=== PATIENT | female | born 1955 | race Caucasian/White ===

== ENCOUNTER 2023-06-24 09:49 | Outpatient (CLI) | payer OTHER, SELFPAY ==
--- NOTE | 2023-06-24 10:03 | ECG_ITS ---
Measurements Intervals [place] Rate: 64 P: 22 AK: 162 QRS: -47 QRSD: 93 T: 25 QT: 392 QTc: 405 Interpretive Statements SINUS RHYTHM LOW QRS VOLTAGE IN PRECORDIAL LEADS INCOMPLETE RIGHT BUNDLE BRANCH LEFT ANTERIOR FASCICULAR BLOCK POOR R WAVE PROGRESSION, ANTERIOR LEADS BASELINE ARTIFACT- I, II, III, AVR, AVL, AVF, V3 ABNORMAL ECG NO PREVIOUS ECG AVAILABLE FOR COMPARISON Electronically Signed On 06-24-2023 10:26:09 CDT by Colin Darnell D.O.
== END 2023-06-24 09:50 | disposition home or self-care (01) ==
LOC: ANHSURGERY 09:54
PROVIDERS: PCP Family Medicine; Visit Provider Surgery Plastic and Reconstructive Surgery
DX: I10 Essential (primary) hypertension (principal); Z01.818 Encounter for other preprocedural examination; I45.10 Unspecified right bundle-branch block
CPT/HCPCS: 93005

== ENCOUNTER 2023-06-26 00:22 | Day surgery (SDC) | payer OTHER, SELFPAY ==
[2023-06-23 09:40] VITALS: BMI 28.8
--- NOTE | 2023-06-23 10:05 | PC.NURSE ---
Report to the Outpatient Waiting Room, entrance under the green pavilion located off [facility], at time __7:00AM on date __06/26/23 . Planned Procedure Time: __9:00AM . Time changes happen often and if your time is changed the preop area will call you the afternoon before. - You and your visitor will be asked to self-screen and do not enter if you have any COVID symptoms. - A mask is optional within the hospital at this time. Patients may have clear liquids (water, carbonated beverages, clear teas, apple juice) until 3 hours prior to surgery with a maximum of 20 ounces. - No food from midnight until time of surgery Take the following medications with a SIP of water the morning of surgery: ___AMLODIPINE, GABAPENTIN NEEDED DO NOT STOP ANY OF YOUR OTHER PRESCRIPTION MEDICATIONS PRIOR TO SURGERY ?EXCEPT THE FOLLOWING Medications to discontinue per physician NONE Date to take last dose Please no make-up, nail tamazight, hairspray, perfume, deodorant, or body powder the day of surgery. No jewelry (including any body piercings) or valuables the day of surgery, leave them at home. Please take a shower or bath the night before, or the morning of, surgery with an antibacterial soap. Wear comfortable, loose fitting clothing. Children are encouraged to wear pajamas. - Jewelry must be removed prior to entering the operating room. Rings and piercings that are not removed may be cut off. - The hospital will not accept responsibility for valuables. - Please leave all valuables, including medications, at home the day of surgery. If you are going home after surgery, a licensed class a regional truck driver must drive you home. - NO public transportation without another adult if you receive anesthesia. - We recommend that an adult stay with you for 24 hours following discharge. - We also recommend that you do not drive, make important decision, drink alcoholic beverages, or take any drugs that were not prescribed by your health care provider for at least 24 hours after your discharge time. Follow any additional instructions given to you from your surgeon. If you or anyone in your household have experienced Covid symptoms in the past week, please notify your surgeon or the nurse liaison at the phone number below for possible testing. Telephone instructions given to __PATIENT and asked if any additional questions and then verbalized understanding. Patient advised to call surgeon office or pre surgery nurse liaison [phone] if any additional questions.
[2023-06-26] VITALS (12 sets, daily range): BP systolic 107–160; BP diastolic 63–106; PULSE 61–80; RESP 12–16; TEMP 36.1–36.4; O2SAT 92–98; BMI 29.0
[2023-06-26] MEDS: LACTATED RINGERS 1,000 ML 30 ML IV CONT ×2 (06:50→12:17)
[2023-06-26 07:36] LABS: Urine Cotinine NEGATIVE
--- NOTE | 2023-06-26 07:45 | P.PNAN_ITS ---
Anes - Initial Pre Proc Eval Procedure: Operation Date: 06/26/23 09:00 Proposed Procedures p Bilateral Breast Implant Exchange, - Josué Cabrera MD s Bilateral Breast Mastopexy - Josué Cabrera MD Date/Time: 06/26/23 07:45 Surgeon: Josué Cabrera MD Pre Op Diagnosis: bilateral implant rupture, breast ptosis Patient Data Age: 67 Gender: F Height: 1.68 m Weight: 81 kg Allergies Allergy/AdvReac Type Severity Reaction Status Date / Time No Known Allergies Allergy Verified 06/23/23 09:37 Home Medications Medication Instructions Recorded Confirmed Type amlodipine 5 mg tablet 5 mg PO QAM 06/23/23 06/23/23 History calcium carbonate 200 mg calcium 200 mg PO BID PRN Indigestion 06/23/23 06/23/23 History (500 mg) chewable tablet (Tums) gabapentin 600 mg tablet 600 mg PO TID PRN Pain 06/23/23 06/23/23 History Laboratory Tests 06/26/23 07:14 Cotinine Negative Patient hx anesthesia problems: none Family hx anesthesia problems: none Results Review: All pre-operative results and documents have been reviewed as part of the pre- operative evaluation. [facility] Past Medical History Medical History (Updated 06/26/23 @ 07:46 by Jayme Calero MD) HTN (hypertension) Overweight Social History Social History Smoking status: Never smoker Alcohol intake: current Drinks per week: 1 Substance use: never Living arrangements: with family [facility] Spiritual care concerns: No Anes - Eval Final PreProcedure Day of Procedure 06/26/23 07:45 Patient weight: overweight Heart: regular rate and rhythm Lungs: clear to auscultation Airway: Mallampati scale class II Neurological: alert and oriented Last oral intake: >/= 8 hours ASA classification: II Emergent: no Anesthetic plan: proceed Anesthesia type and monitoring: general ETT and standard monitoring Results Review: All pre-operative results and documents have been reviewed as part of the pre- operative evaluation. Informed Consent: The patient's anesthetic plan and its attendant risks and benefits were discussed with the patient/family/POA. Questions were solicited and answers provided to the satisfaction of the patient/family/POA.
--- NOTE | 2023-06-26 08:48 | WPDHPUPDATE1 ---
History and Physical Update Update Date/Time: 06/26/23 08:48 History and Physical has been reviewed, including an updated exam of the patient. There are NO changes in the patient's condition. Risks, benefits, and alternatives have been discussed and questions answered. Patient agrees to proceed with procedure.
--- NOTE | 2023-06-26 08:51 | W.PM.PROC2 ---
Procedure Note - Detailed Date of Procedure 06/26/23 Pre-op Diagnosis bilateral implant rupture, breast ptosis Post-op Diagnosis Same Procedure Performed Bilateral breast implant exchange with mastopexy Surgeon Josué Cabrera MD Anesthesia General Findings Previous implants: Bilateral smooth implants. No identifiable size / markings visible. Pre-pectoral New implants: Bilateral Carol Leija SoftTouch 360cc Right - REF# [id number] SN [id number] Left - REF# [id number] SN [id number] Description of Procedure She is here today for bilateral breast implant exchange with mastopexy. Previously and again today the risks, benefits, alternatives were discussed in extensive detail. I wanted her to be very realistic about the risks involved as well as expectations. Discussed utilization of suction lipectomy for contour. We discussed aftercare and what to monitor for. Made sure answered all of her questions to her satisfaction today and consent was obtained. Marked in the preoperative holding area with their verification. The patient was taken to the operating room placed supine on the operating table. Anesthesia was provided by anesthesiology. A surgical time-out was taken. We cleansed the skin and 1% lidocaine and 0.25% Marcaine with epinephrine was used anesthetize as a field block. She was prepped and draped in a standard sterile fashion. Lateral stab incisions made and infiltrated with tumescent solution lateral to breast. Tegaderm nipple Pino were placed. A 15 blade used to make an incision just superior to the inframammary fold leaving a cusp of de-epithelized tissue at the t junction. Dissection was continued until the capsule was identified and I elevated superficial to remove a significant portion of the capsule. Capsule was entered and implant removed as well as the portion of the capsule. Copiously irrigated with saline solution on TUR tubing for 3 liters. Gloves changed. I then copiously irrigated with saline solution and verified a strict hemostasis. Next the use a triple antibiotic and Betadine containing solution to irrigate the pocket. I washed my gloves with the triple antibiotic and Betadine solution. We washed the implant immediately upon opening it with this solution and only opened it when we needed it. I used implant funnel and no-touch technique. The implant was introduced into the pocket using the funnel. Having verified positioning of the implant this was closed using 2-0 PDS. I tailor tacked the breast into position. Placed her in a sitting position. Verified the nipple-areolar location based on preoperative planning as well as intraoperative observations and measurements in full agreement. Suction lipectomy was completed lateral to breast for shapping with a 4mm basket cannula based on S.A.F.E. technique. This was based on pre-operative planning, intraoperative observation, and rolling pinch which were in full agreement. Care was taken to protect the implant from injury. Lipoaspirate 600 cc. She was placed supine. I de-epithelialized the pedicle. I then removed the inferior central portion of the breast need making sure the implant was well protected. I elevated medial and lateral tissue flaps as well for planned closure. I closed along the IMF with 2-0 Stratafix. Along the vertical with 2-0 PDS. I closed around the areola with 3-0 strata fix. 3-0 Monocryl along the vertical. 3-0 Stratafix along the IMF. I finally closed everything with running subcuticular 4-0 Monocryl and tissue glue. Fluffs and surgical bra were placed. Estimated Blood Loss 100 Drains No Packing No Pathology Yes (Bilateral breast capsules) Complications No immediate complications Condition Stable Disposition PACU
[2023-06-26] MEDS: TRANEXAMIC ACID 1,000MG/ISO100 1,000 MG/100 ML BAG 200 MG IVPB (09:04)
[2023-06-26] MEDS: ceFAZolin 2 GM/D5W 50 ML 2 GM/50 ML BAG IVPB (09:18)
[2023-06-26] MEDS: NACL 0.9% IRRIG POUR BOTTLE 900 ML, GENTAMICIN SULFATE INJ 160 MG, ceFAZolin 2 GM, POVI... IRRIGATION (09:24)
[2023-06-26] MEDS: LIDO 1%/EPINEPHRINE 1:100,000 20 ML VIAL 30 ML INFILTRATE (09:24)
[2023-06-26] MEDS: LACTATED RINGERS IRRIG 1,000 ML, LIDOCAINE HCL 1% LOCAL INJ 50 ML, EPINEPHrine HCL INJ ... INFILTRATE (09:24)
[2023-06-26] MEDS: fentaNYL CITRATE INJ (*CRX) 100 MCG/2 ML VIAL 25 MCG IV PUSH ×5 (12:26→13:36)
[2023-06-26] MEDS: diphenhydrAMINE HCl INJ 50 MG/ML VIAL 25 MG IV PUSH (12:54)
[2023-06-26] MEDS: oxyCODONE HCL (*CRX) 5 MG TAB IR PO (14:10)
[2023-06-26] MEDS: ONDANSETRON INJ 4 MG/2 ML VIAL IV PUSH (15:16)
== END 2023-06-26 15:44 | disposition home or self-care (01) ==
PROVIDERS: PCP Family Medicine; Visit Provider Surgery Plastic and Reconstructive Surgery
PROC: (CPT 19316; principal; 2023-06-26 09:00)
PROC: (CPT 19316; 2023-06-26 09:00)
DX: T85.41XA Breakdown (mechanical) of breast prosthesis and implant, initial encounter (principal); N64.81 Ptosis of breast; Y83.8 Other surgical procedures as the cause of abnormal reaction of the patient, or of later complication, without mention of misadventure at the time of the procedure; I10 Essential (primary) hypertension; Z79.891 Long term (current) use of opiate analgesic
CPT/HCPCS: 19316; 19325; 19370; 80307; 88304; A9270; J0171; J0690; J1100; J1170; J1200; J1580; J2250; J2405; J2704; J3010; J7120